=== PATIENT | male | born 1960 | race Caucasian/White ===

== ENCOUNTER 2024-01-08 05:31 | Day surgery (SDC) | payer OTHER ==
[2023-12-31 11:59] VITALS: BMI 36.8
[2024-01-08 11:35] VITALS: TEMP 97.8
[2024-01-08 12:00] VITALS: PULSE 62
[2024-01-08 12:02] VITALS: BP 112/54; RESP 12
== END 2024-01-08 12:30 | disposition home or self-care (01) ==
LOC: JASU-ENDO 05:31
PROVIDERS: ATTEND Internal Medicine Gastroenterology
PROC: 0DB98ZX Excision of Duodenum, Via Natural or Artificial Opening Endoscopic, Diagnostic (ICD-10-PCS; 2024-01-08)
PROC: 0DB68ZX Excision of Stomach, Via Natural or Artificial Opening Endoscopic, Diagnostic (ICD-10-PCS; 2024-01-08)
PROC: 0DBL8ZX Excision of Transverse Colon, Via Natural or Artificial Opening Endoscopic, Diagnostic (ICD-10-PCS; principal; 2024-01-08 10:00)
DX: Z12.11 Encounter for screening for malignant neoplasm of colon (principal); K63.5 Polyp of colon; K25.7 Chronic gastric ulcer without hemorrhage or perforation; K29.50 Unspecified chronic gastritis without bleeding; K64.8 Other hemorrhoids; D64.9 Anemia, unspecified
CPT/HCPCS: 82962; 88305-TC; 88342-TC